=== PATIENT | male | born 1950 | race Caucasian/White ===

== ENCOUNTER 2019-07-02 20:32 | Inpatient (IN) | payer MEDICARE, OTHER ==
--- NOTE | 2019-07-02 21:33 | PDOC ---
Attending Attestation - Resident Resident Name: Michael Mireles - ED Attending Attestation I have performed the following: I have examined & evaluated the patient, The case was reviewed & discussed with the resident, I agree w/resident's findings & plan, Exceptions are as noted - HPI HPI: 07/03/19 06:19 See resident HPI - Physicial Exam PE: 07/03/19 06:19 Agree with documented exam - Medical Decision Making 07/02/19 21:32 Patient had episode of eugenio syncope with prodrome and fall from standing f/u labs, imaging, ekg dispo per clinical course admit for syncope evaluation
--- NOTE | 2019-07-02 21:54 | PDOC ---
History of Present Illness - General Chief Complaint: Injury Stated Complaint: SLIP AND FALL Time Seen by Provider: 07/02/19 20:55 - History of Present Illness Initial Comments: 07/02/19 21:50 69 yo M PMH HTN, HLD, NIDDM, asthma, glaucoma, open heart surgery 8 years ago, presenting with syncope. States that around 1830 today, he was walking in his kitchen when he felt lightheaded, felt like his vision grew dark, and woke up on the floor. Unsure how long he was down, but thinks several minutes. States that this is identical to previous symptoms 8 years ago when he had 7 episodes like this, culminating in open heart surgery. Had been symptom free since surgery. Heel Caser is Dr. Teresa at [facility]. Currently complains only of 8/10 parietal headache. Denies ever having CP, SOB, abd pain, fevers/chills, constipation/diarrhea. Past History - Past Medical History Allergies/Adverse Reactions: Allergies Allergy/AdvReac Type Severity Reaction Status Date / Time No Known Allergies Allergy Verified 07/02/19 20:57 Home Medications: Ambulatory Orders Amlodipine Besylate [Norvasc -] 5 mg PO DAILY 03/12/12 Aspirin [ASA -] 81 mg PO DAILY 07/03/19 Atorvastatin Ca [Lipitor] 40 mg PO DAILY 07/03/19 Ergocalciferol (Vitamin D2) [Vitamin D2] 50,000 unit PO WEEKLY 07/03/19 Latanoprost 0.005% Eye Drops [Xalatan 0.005% Eye Drops -] 1 drop OU DAILY Lisinopril 20 mg PO DAILY 07/03/19 Tolterodine Tartrate [Tolterodine Tartrate ER] 4 mg PO DAILY 07/03/19 Diabetes: Yes HTN: Yes - Psycho Social/Smoking Cessation Hx Smoking Status: Yes Smoking History: Unknown if ever smoked Have you smoked in the past 12 months: No Number of Cigarettes Smoked Daily: 0 Information on smoking cessation initiated: No Hx Alcohol Use: No Drug/Substance Use Hx: No Substance Use Type: None Hx Substance Use Treatment: No Review of Systems - Review of Systems Comments:: 07/02/19 21:55 GENERAL/CONSTITUTIONAL: No fever or chills. No weakness. HEAD, EYES, EARS, NOSE AND THROAT: No change in vision. No ear pain or discharge. No sore throat. CARDIOVASCULAR: No chest pain or shortness of breath. RESPIRATORY: No cough, wheezing, or hemoptysis. GASTROINTESTINAL: No nausea, vomiting, diarrhea or constipation. GENITOURINARY: No dysuria, frequency, or change in urination. MUSCULOSKELETAL: No joint or muscle swelling or pain. No neck or back pain. SKIN: No rash NEUROLOGIC: No headache, vertigo, loss of consciousness, or change in strength/ sensation. ENDOCRINE: No increased thirst. No abnormal weight change. HEMATOLOGIC/LYMPHATIC: No anemia, easy bleeding, or history of blood clots. ALLERGIC/IMMUNOLOGIC: No hives or skin allergy *Physical Exam - Vital Signs Last Vital Signs Temp Pulse Resp BP Pulse Ox 98.3 F 56 L 18 105/51 L 95 07/02/19 21:05 07/02/19 21:05 07/02/19 21:05 07/02/19 21:05 07/02/19 21:05 - Physical Exam 07/02/19 21:57 Gen: well-developed, well-nourished, NAD Neuro: AAOX4, CN II-XII intact, FTN intact, EOMI, PERRLA, 5/5 strength, SILT HEENT: atraumatic, normocephalic, dry mucous membranes Neck: trachea midline, supple CV: regular rate, regular rhythm, no murmurs, rubs, or gallops Pulm: CTA b/l, no wheezing Abd: soft, non-distended, non-tender MSK: full ROM, intact pulses Extr: no edema, no deformities Skin: warm, dry ED Treatment Course - LABORATORY CBC & Chemistry Diagram: 07/03/19 05:22 07/04/19 06:25 - RADIOLOGY Radiology Studies Ordered: Category Date Time Status HEAD CT WITHOUT CONTRAST [CT] Stat CT Scan 07/02/19 21:33 Taken CXRPORT [CHEST X-RAY PORTABLE*] [RAD] Stat Radiology 07/02/19 21:34 Ordered Medical Decision Making - Medical Decision Making 07/02/19 21:58 Concern for dysrhythmia vs ACS vs brain bleed. - head CT - EKG, CXR - CBC, CMP, trop - UA/UC - admit 07/02/19 23:06 CXR with no acute pathology. CT head: In comparison to a 2012 CT exam, interval development of a chronic left temporal/occipital cortical infarct is noted. Chronic left parietal and right temporoparietal cortical infarcts are seen which were acute at the time of the previous exam. 07/02/19 23:35 EKG normal sinus at 54 bpm. Will admit for syncope with collapse to tele. Discharge - Discharge Information Problems reviewed: Yes Clinical Impression/Diagnosis: Syncope Condition: Stable Disposition: HOME - Follow up/Referral - Patient Discharge Instructions - Post Discharge Activity
[2019-07-02 22:42] LABS: BASO % 0.3 % (0-2.0); EOS % 3.4 % (0-4.5); HEMATOCRIT 40.3 % (35.4-49); HEMOGLOBIN 13.2 GM/dL (11.7-16.9); LYMPH % 35.6 % (8-40); MCH 28.7 pg (25.7-33.7); MCHC 32.7 g/dl (32.0-35.9); MEAN PLT VOLUME 8.3 fl (7.5-11.1); MONO % 5.5 % (3.8-10.2); NEUT % 55.2 % (42.8-82.8); PLATELET COUNT 221 K/MM3 (134-434); RBC 4.58 M/mm3 (4.00-5.60); RDW 15.9 % (11.9-15.9); WHITE BLOOD COUNT 6.5 K/mm3 (4.0-10.0)
[2019-07-02 23:19] LABS: ALBUMIN 3.8 g/dl (3.4-5.0); BILIRUBIN,TOTAL 0.5 mg/dL (0.2-1); BLOOD UREA NITROGEN 13.7 mg/dL (7-18); CALCIUM 9.5 mg/dL (8.5-10.1); CREATININE 1.2 mg/dL (0.55-1.3); POTASSIUM 4.2 mmol/L (3.5-5.1); TOT PROT 7.4 g/dl (6.4-8.2)
--- NOTE | 2019-07-03 00:26 | PN ---
Teaching Attending Note Name of Resident: Mari Rice ATTENDING PHYSICIAN STATEMENT I saw and evaluated the patient. I reviewed the resident's note and discussed the case with the resident. I agree with the resident's findings and plan as documented. SUBJECTIVE: Patient is a 69 year old man with a PMH of HTN, HLD, NIDDM, Asthma, glaucoma and Open heart surgery 8 years ago presenting with syncope. States that around 1830 today, he was walking in his kitchen when he felt lightheaded, felt like his vision grew dark, and woke up on the floor. Unsure how long he was down, but thinks several minutes. States that this is identical to previous symptoms 8 years ago when he had 7 episodes like this, culminating in open heart surgery. Had been symptom free since surgery. Blast Setter is Dr. Teresa at [facility]. Currently complains only of 8/10 parietal headache. Denies ever having chest pain, SOB, abdominal pain, nausea, vomiting, fevers, chills, dysuria, frequency, constipation or diarrhea. No recent travel or sick contacts. Denies alcohol, tobacco or illicit drug use. OBJECTIVE: Alert and not orthostatic Vital Signs Period Temp Pulse Resp BP Sys/Munoz Pulse Ox Last 24 Hr 98.3 F 56 18 105/51 95-98 HEENT: No Jaundice, eye redness or discharge, PERRLA, EOMI. Normocephalic, atraumatic. External ears are normal and hearing is grossly intact. No nasal discharge. Neck: Supple, nontender. No palpable adenopathy or thyromegaly. No JVD Chest: Good effort. Clear to auscultation and percussion. Heart: Regular. No S3, rub or murmur Abdomen: Not distended, soft, nontender and no HSM. No rebound or guarding. Normal bowel sounds. Ext: Peripheral pulses intact. No leg edema. Skin: Warm and dry. No petechiae, rash or ecchymosis. Neuro: Alert. Oriented x3. CN 2-12 grossly intact. Sensation grossly intact in all four extremities and DTR are symmetric. Psych: Appropriate mood and affect. Good insight. Home Medications Medication Instructions Recorded Amlodipine Besylate [Norvasc] 5 mg PO DAILY 03/12/12 Chlorthalidone 25 mg PO DAILY 03/12/12 Ibuprofen [Motrin] 600 mg PO TID PRN 03/12/12 Oxycodone HCl/Acetaminophen 1 - 2 tab PO Q6H PRN 03/12/12 [Percocet 5-325 mg Tablet] Abnormal Lab Results 07/02/19 07/03/19 22:35 02:06 Anion Gap 5 L Ur Specific Ramona 1.007 L Ur Leukocyte Esterase 1+ H ASSESSMENT AND PLAN: 1. Syncope - Etiology unclear. Head CT shows interval development of a chronic left temporal/occipital cortical infarct is noted. Also chronic left parietal and right temporoparietal cortical infarcts are seen. CXR shows elevated left hemidiaphragm but no acute abnormality on CXR. EKG shows sinus bradycardia with no significant ST-T changes and initial troponin is negative. Urine toxicology pending. Monitor on telemetry, do neurochecks, carotid doppler, ECHO, brain MRI , implement fall/seizure precautions, get EEG and consult Neurology and cardiology. Will continue comprehensive care for all of patients comorbid conditions. 2. DM For now, we will hold the home diabetes drugs and implement sliding scale insulin regimen. Provide comprehensive diabetes care with patient teaching and counseling about the importance of adherence to prescribed diabetes regimen, euglycemia, eye care and foot care. 3. Hypertension - Restart suitable outpatient antihypertensive drugs when clinically appropriate. Revise regimen to ensure [id number] excellent BP control and certified drug counselor patient on the injurious effects of uncontrolled hypertension. Nonpharmacologic measures to control hypertension like weight loss , salt restriction and exercise discussed. Importance of adherence to treatment regimen and attainment of normotension emphasized. 4. DVT prophylaxis - Lovenox 40 mg SQ q 24 hours. 5. Advance directives - Full code
--- NOTE | 2019-07-03 00:58 | PDOC ---
*Physical Exam - Vital Signs Last Vital Signs Temp Pulse Resp BP Pulse Ox 98.3 F 56 L 18 105/51 L 98 07/02/19 21:05 07/02/19 21:05 07/02/19 21:05 07/02/19 21:05 07/02/19 22:59 ED Treatment Course - LABORATORY CBC & Chemistry Diagram: 07/02/19 22:35 07/02/19 22:35 Medical Decision Making - Medical Decision Making 07/03/19 00:58 Case d/w Dr Rice, accepted to tele obs. Discharge - Discharge Information Problems reviewed: Yes Clinical Impression/Diagnosis: Syncope Condition: Stable - Admission Yes - Follow up/Referral - Patient Discharge Instructions - Post Discharge Activity
[2019-07-03 02:18] LABS: EPI CELLS 0.3 /HPF (0-5/HPF); HYALINE CASTS 0 /lpf (0-8); PH,URINE 7.5 (5.0-8.0); URINE APPEARANCE CLEAR; URINE BACTERIA 0.5 /hpf (NEGATIVE); URINE BILIRUBIN NEGATIVE (NEGATIVE); URINE COLOR YELLOW; URINE GLUCOSE (UA) NEGATIVE (NEGATIVE); URINE KETONE NEGATIVE (NEGATIVE); URINE LEUK ESTERASE 1+ (NEGATIVE); URINE NITRITE NEGATIVE (NEGATIVE); URINE PROTEIN NEGATIVE (NEGATIVE); URINE RBC 0 /hpf (0-4); URINE UROBILINOGEN 0.2 mg/dL (0.2-1.0); URINE WBC 1 /hpf (0-5)
--- NOTE | 2019-07-03 02:19 | HP ---
CHIEF COMPLAINT: Syncope Hat Blocker: Dr. Teresa ([facility]) HISTORY OF PRESENT ILLNESS: Mr. Becerra is a 69 year old male with PMH of stroke, CABG, HTN, HLD, DM2, asthma, glaucoma who presents s/p syncopal episode. Around 6pm last night, pt was walking to kitchen to get water for his cough. He was coughing, felt lightheaded, had tunnel vision and then woke up on the ground. Episode was unwitnessed. He believes he lost consciousness for about 5 minutes and may have hit his head as he awoke with a parietal headache. He denies any chest pain, palpitations, nausea, SOB preceding the event. Denies seizures or urinating himself. After episode he denies any symptoms, confusion, focal neurologic deficits. He had similar episodes 8 years ago and was diagnosed with stroke and underwent CABG. Pt did well up until one year ago he had a syncopal episode that was preceded by chest pain. He was evaluated at [facility] and does not remember what was done. He sees Dr. Teresa (cardio at [facility]) regularly, last visit one month ago and states that he was told "his heart was okay". Pt feels well at this time, only complains of mild headache. He has residual weakness in his R leg from prior stroke. ER course was notable for: (1) EKG: sinus bradycardia (2) Initial trop neg (3) CT head: no evidence of acute pathology. Interval development of chronic L temporal/occipital cortical infarct. 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 Paranasal sinus disease. Recent Travel: denies PAST MEDICAL HISTORY: As per HPI PAST SURGICAL HISTORY: Social History: Smoking: denies Alcohol: denies Drugs: denies Allergies No Known Allergies Allergy (Verified 07/02/19 20:57) HOME MEDICATIONS: Home Medications Medication Instructions Recorded Amlodipine Besylate [Norvasc] 5 mg PO DAILY 03/12/12 Chlorthalidone 25 mg PO DAILY 03/12/12 Ibuprofen [Motrin] 600 mg PO TID PRN 03/12/12 Oxycodone HCl/Acetaminophen 1 - 2 tab PO Q6H PRN 03/12/12 [Percocet 5-325 mg Tablet] REVIEW OF SYSTEMS CONSTITUTIONAL: Absent: fever, chills, diaphoresis, generalized weakness, malaise, loss of appetite, weight change HEENT: Absent: rhinorrhea, nasal congestion, throat pain, throat swelling, difficulty swallowing, mouth swelling, ear pain, eye pain, visual changes CARDIOVASCULAR: syncope, lightheadedness Absent: chest pain, palpitations, irregular heart rate, peripheral edema RESPIRATORY: Absent: cough, shortness of breath, dyspnea with exertion, orthopnea, wheezing, stridor, hemoptysis GASTROINTESTINAL: Absent: abdominal pain, abdominal distension, nausea, vomiting, diarrhea, constipation, melena, hematochezia GENITOURINARY: Absent: dysuria, frequency, urgency, hesitancy, hematuria, flank pain, genital pain MUSCULOSKELETAL: Absent: myalgia, arthralgia, joint swelling, back pain, neck pain SKIN: Absent: rash, itching, pallor HEMATOLOGIC/IMMUNOLOGIC: Absent: easy bleeding, easy bruising, lymphadenopathy, frequent infections ENDOCRINE: Absent: unexplained weight gain, unexplained weight loss, heat intolerance, cold intolerance NEUROLOGIC: headache Absent: focal weakness or paresthesias, dizziness, unsteady gait, seizure, mental status changes, bladder or bowel incontinence PSYCHIATRIC: Absent: anxiety, depression, suicidal or homicidal ideation, hallucinations. PHYSICAL EXAMINATION Vital Signs - 24 hr 07/02/19 07/02/19 21:05 22:59 Temperature 98.3 F Pulse Rate 56 L Respiratory 18 Rate Blood Pressure 105/51 L O2 Sat by Pulse 95 98 Oximetry (%) GENERAL: Awake, alert, and fully oriented, in no acute distress. HEAD: Normal with no signs of trauma. EYES: Pupils equal, round and reactive to light, extraocular movements intact, sclera anicteric, conjunctiva clear. No lid lag. EARS, NOSE, THROAT: Ears normal, nares patent, oropharynx clear without exudates. Moist mucous membranes. NECK: Normal range of motion, supple without lymphadenopathy, JVD, or masses. LUNGS: Breath sounds equal, clear to auscultation bilaterally. No wheezes, and no crackles. No accessory muscle use. HEART: Bradycardic, normal S1 and S2 without murmur, rub or gallop. ABDOMEN: Soft, nontender, not distended, normoactive bowel sounds, no guarding, no rebound, no masses. No hepatomegaly or splenomegaly. MUSCULOSKELETAL: Normal range of motion at all joints. No bony deformities or tenderness. No CVA tenderness. UPPER EXTREMITIES: 2+ pulses, warm, well-perfused. No cyanosis. No clubbing. No peripheral edema. LOWER EXTREMITIES: 2+ pulses, warm, well-perfused. No calf tenderness. No peripheral edema. NEUROLOGICAL: Cranial nerves II-XII intact. Normal speech. Gait not observed. Residual RLE weakness. PSYCHIATRIC: Cooperative. Good eye contact. Appropriate mood and affect. SKIN: Warm, dry, normal turgor, no rashes or lesions noted, normal capillary refill. Laboratory Results - last 24 hr 07/02/19 07/02/19 07/02/19 22:35 22:35 22:35 WBC 6.5 RBC 4.58 Hgb 13.2 Hct 40.3 D MCV 88.0 MCH 28.7 D MCHC 32.7 RDW 15.9 Plt Count 221 MPV 8.3 D Absolute Neuts (auto) 3.6 Neutrophils % 55.2 D Lymphocytes % 35.6 D Monocytes % 5.5 D Eosinophils % 3.4 Basophils % 0.3 Nucleated RBC % 0 Sodium 140 Potassium 4.2 Chloride 107 Carbon Dioxide 28 Anion Gap 5 L BUN 13.7 Creatinine 1.2 Est GFR (CKD-EPI)AfAm 71.58 Est GFR (CKD-EPI)NonAf 61.76 Random Glucose 101 Calcium 9.5 Total Bilirubin 0.5 AST 17 ALT 16 Alkaline Phosphatase 92 Creatine Kinase 181 Creatine Kinase Index 0.8 CK-MB (CK-2) 1.5 Troponin I 0.02 Total Protein 7.4 Albumin 3.8 ASSESSMENT/PLAN: Mr. Becerra is a 69 year old male with PMH of stroke, CABG, HTN, HLD, DM2, asthma, glaucoma who presents s/p syncopal episode. #Syncope likely 2/2 cardiac vs vasovagal vs orthostatic vs seizure EKG: Sinus bradycardia, no st elevations Orthostatics negative Echo, carotid doppler, tele monitoring. Consider stress test EEG and frequent neuro checks to r/o seizure F/u Utox Fall and seizure precautions Cardiology consulted (Dr. Pederson) #DM2 Home meds unknown ISS TIDAC and FSG monitoring during admission #HTN Home meds unknown. Med rec and continue in am #HLD Home meds unknown. Med rec and continue in am #FEN No standing fluids NPO pending possible stress test #DVT ppx Heparin sq #Dispo Monitor on tele Pt needs to be med-rec'ed ATTENDING PHYSICIAN STATEMENT I saw and evaluated the patient. I reviewed the resident's note and discussed the case with the resident. I agree with the resident's findings and plan as documented. SUBJECTIVE: OBJECTIVE: ASSESSMENT AND PLAN:
[2019-07-03 05:39] LABS: BASO % 0.9 % (0-2.0); EOS % 6.2 % (0-4.5); HEMATOCRIT 38.3 % (35.4-49); HEMOGLOBIN 12.6 GM/dL (11.7-16.9); LYMPH % 40.9 % (8-40); MCH 28.7 pg (25.7-33.7); MCHC 32.9 g/dl (32.0-35.9); MEAN CELL VOLUME 87.2 fl (80-96); MEAN PLT VOLUME 8.1 fl (7.5-11.1); MONO % 6.9 % (3.8-10.2); NEUT % 45.1 % (42.8-82.8); PLATELET COUNT 211 K/MM3 (134-434); RBC 4.39 M/mm3 (4.00-5.60); RDW 15.8 % (11.9-15.9); WHITE BLOOD COUNT 5.1 K/mm3 (4.0-10.0)
[2019-07-03 06:26] LABS: ALBUMIN 3.5 g/dl (3.4-5.0); BILIRUBIN,TOTAL 0.6 mg/dL (0.2-1); BLOOD UREA NITROGEN 12.4 mg/dL (7-18); CALCIUM 9.1 mg/dL (8.5-10.1); TOT PROT 6.9 g/dl (6.4-8.2)
[2019-07-03] MEDS ORDERED: INSULIN (NOVOLOG) ASPART 100 UNITS/ML 10ML VIAL ONE (06:32)
[2019-07-03] MEDS ORDERED: HEPARIN NA (PORCINE) 5,000 UNITS/ML 1ML VIAL ONE (06:32)
[2019-07-03] MEDS: INSULIN SLIDING SCALE (NOVOLOG) 1 VIAL SQ SCH ×3 (06:37→17:27)
[2019-07-03] MEDS: HEPARIN NA (PORCINE) 5,000 UNITS/ML 1ML VIAL SQ SCH ×3 (06:37→21:16)
--- NOTE | 2019-07-03 11:06 | CON.CARD ---
Consult Consult Specialty:: cardology Reason for Consultation:: syncope - History of Present Illness Chief Complaint: Pt A&Ox3; no chest pain or dyspnea; headache is now mild. History of Present Illness: 69 yo M PMH HTN, HLD, NIDDM, asthma, glaucoma, CABG 8 years ago, diastolic CHF, s/p bioprosthetic mitral valve, presenting with syncope. States that around 1830 today, he was walking in his kitchen when he felt lightheaded, felt like his vision grew dark, and woke up on the floor. Unsure how long he was down, but thinks several minutes. States that this is identical to previous symptoms 8 years ago when he had 7 episodes like this, culminating in open heart surgery. Had been symptom free since surgery. Legal Instructor is Dr. Gonzalez at [facility]. Currently complains only of 8/10 parietal headache. Denies ever having CP, SOB, abd pain, fevers/chills, constipation/diarrhea. - History Source History Provided By: Patient, Medical Record Limitations to Obtaining History: No Limitations - Past Medical History Cardio/Vascular: Yes: CAD, CHF (diastolic), HTN, Hyperlipdemia Pulmonary: Yes: Asthma Renal/: No: Renal Inusuff Heme/Onc: No: Anemia - Alcohol/Substance Use Hx Alcohol Use: No - Smoking History Have you smoked in the past 12 months: No Aproximately how many cigarettes per day: 0 Home Medications - Allergies Allergies/Adverse Reactions: Allergies Allergy/AdvReac Type Severity Reaction Status Date / Time No Known Allergies Allergy Verified 07/02/19 20:57 - Home Medications Home Medications: Ambulatory Orders Amlodipine Besylate [Norvasc] 5 mg PO DAILY 03/12/12 Aspirin [ASA -] 81 mg PO DAILY 07/03/19 Atorvastatin Ca [Lipitor] 40 mg PO DAILY 07/03/19 Ergocalciferol (Vitamin D2) [Vitamin D2] 50,000 unit PO WEEKLY 07/03/19 Latanoprost 0.005% Eye Drops [Xalatan 0.005% Eye Drops -] 1 drop OU DAILY Lisinopril 20 mg PO DAILY 07/03/19 Tolterodine Tartrate [Tolterodine Tartrate ER] 4 mg PO DAILY 07/03/19 Family Medical History Family History: Denies Review of Systems - Review of Systems Constitutional: reports: No Symptoms Eyes: reports: No Symptoms HENT: reports: No Symptoms Neck: reports: No Symptoms Cardiovascular: reports: No Symptoms Respiratory: reports: No Symptoms Gastrointestinal: reports: No Symptoms Genitourinary: reports: No Symptoms Breasts: reports: No Symptoms Reported Musculoskeletal: reports: No Symptoms Integumentary: reports: No Symptoms Neurological: reports: Syncope Endocrine: reports: No Symptoms Hematology/Lymphatic: reports: No Symptoms Psychiatric: reports: No Symptoms - Risk Factors Known Risk Factors: Yes: Age, Diabetes Mellitus, Gender, Hypercholesterolemia, Hypertension, Other (CABG) Vital Signs: Vital Signs Temperature 97.3 F L 07/03/19 10:26 Pulse Rate 62 07/03/19 10:26 Respiratory Rate 20 07/03/19 10:26 Blood Pressure 116/60 07/03/19 10:26 O2 Sat by Pulse Oximetry (%) 96 07/03/19 10:26 Constitutional: Yes: Well Nourished Eyes: Yes: WNL HENT: Yes: WNL Neck: Yes: WNL Respiratory: Yes: WNL Gastrointestinal: Yes: WNL Renal/: Yes: WNL Cardiovascular: Yes: WNL JVD: No Carotid Bruit: No PMI: Non-Displaced Heart Sounds: Yes: S1, S2 Musculoskeletal: Yes: WNL Extremities: Yes: WNL Edema: No Peripheral Pulses WNL: Yes Integumentary: Yes: WNL Neurological: Yes: Alert, Oriented Psychiatric: Yes: Alert, Oriented - Other Data Labs, Other Data: CBC, BMP 07/03/19 05:22 07/03/19 05:22 Troponin, BNP 07/02/19 22:35 Troponin I 0.02 Troponin, BNP 07/02/19 22:35 Troponin I 0.02 Laboratory Results - last 24 hr 07/03/19 07/03/19 07/03/19 05:22 05:22 06:33 WBC 5.1 RBC 4.39 Hgb 12.6 Hct 38.3 MCV 87.2 MCH 28.7 MCHC 32.9 RDW 15.8 Plt Count 211 MPV 8.1 Absolute Neuts (auto) 2.3 Neutrophils % 45.1 Lymphocytes % 40.9 H Monocytes % 6.9 Eosinophils % 6.2 H D Basophils % 0.9 Nucleated RBC % 0 Sodium 141 Potassium 4.0 Chloride 109 H Carbon Dioxide 27 Anion Gap 5 L BUN 12.4 Creatinine 1.0 Est GFR (CKD-EPI)AfAm 89.23 Est GFR (CKD-EPI)NonAf 76.99 POC Glucometer 95 Random Glucose 92 Calcium 9.1 Total Bilirubin 0.6 AST 13 L ALT 16 Alkaline Phosphatase 84 Total Protein 6.9 Albumin 3.5 Triglycerides Cholesterol Total LDL Cholesterol HDL Cholesterol TSH Opiates Screen Methadone Screen Barbiturate Screen Phencyclidine Screen Ur Amphetamines Screen MDMA (Ecstasy) Screen Benzodiazepines Screen Cocaine Screen U Marijuana (THC) Screen 07/03/19 07/03/19 07/03/19 10:41 17:25 21:45 WBC RBC Hgb Hct MCV MCH MCHC RDW Plt Count MPV Absolute Neuts (auto) Neutrophils % Lymphocytes % Monocytes % Eosinophils % Basophils % Nucleated RBC % Sodium Potassium Chloride Carbon Dioxide Anion Gap BUN Creatinine Est GFR (CKD-EPI)AfAm Est GFR (CKD-EPI)NonAf POC Glucometer 122 Random Glucose Calcium Total Bilirubin AST ALT Alkaline Phosphatase Total Protein Albumin Triglycerides Cholesterol Total LDL Cholesterol HDL Cholesterol TSH 2.35 Opiates Screen Negative Methadone Screen Negative Barbiturate Screen Negative Phencyclidine Screen Negative Ur Amphetamines Screen Negative MDMA (Ecstasy) Screen Negative Benzodiazepines Screen Negative Cocaine Screen Negative U Marijuana (THC) Screen Negative 07/03/19 21:45 WBC RBC Hgb Hct MCV MCH MCHC RDW Plt Count MPV Absolute Neuts (auto) Neutrophils % Lymphocytes % Monocytes % Eosinophils % Basophils % Nucleated RBC % Sodium Potassium Chloride Carbon Dioxide Anion Gap BUN Creatinine Est GFR (CKD-EPI)AfAm Est GFR (CKD-EPI)NonAf POC Glucometer Random Glucose Calcium Total Bilirubin AST ALT Alkaline Phosphatase Total Protein Albumin Triglycerides 70 Cholesterol 119 Total LDL Cholesterol 49 HDL Cholesterol 61 H TSH Opiates Screen Methadone Screen Barbiturate Screen Phencyclidine Screen Ur Amphetamines Screen MDMA (Ecstasy) Screen Benzodiazepines Screen Cocaine Screen U Marijuana (THC) Screen Abnormal Lab Results 07/03/19 07/03/19 07/03/19 05:22 05:22 21:45 Lymphocytes % 40.9 H Eosinophils % 6.2 H D Chloride 109 H Anion Gap 5 L AST 13 L HDL Cholesterol 61 H Echo: Report Reviewed Ejection Fraction %: LVEF > or = 40 % Imaging - Results Chest X-ray: Image Reviewed EKG: Image Reviewed Problem List - Problems (1) Diabetes Code(s): E11.9 - TYPE 2 DIABETES MELLITUS WITHOUT COMPLICATIONS (2) HTN (hypertension) Code(s): I10 - ESSENTIAL (PRIMARY) HYPERTENSION (3) Hyperlipidemia Assessment/Plan: f/u lipid profile. On statin. Code(s): E78.5 - HYPERLIPIDEMIA, UNSPECIFIED (4) Syncope Assessment/Plan: orthostatic vital signs. Avoid dehydration. ECHO: normal LVEF. EKG: mildly sinus bradycardia; otherwise normal. Carotid artery US: mild plaque; no stenosis. CT head: chronic cerebral infarcts; f/u etiology. on telemetry. F/u prior cardiac workup (Dr. Gonzalez, [facility]); for stress test if not done recently (may be done as outpatient). Code(s): R55 - SYNCOPE AND COLLAPSE (5) CAD (coronary artery disease) Assessment/Plan: s/p CABG 2011 normal LVEF F/u lipids (on atorvastatin) On lisinopril and amlodipine. Code(s): I25.10 - ATHSCL HEART DISEASE OF [place] CORONARY ARTERY W/O ANG PCTRS (6) CVA (cerebral vascular accident) Assessment/Plan: chronic infarcts noted on head CT. F/u prior neurology workup. Aggresive control of lipids. Code(s): I63.9 - CEREBRAL INFARCTION, UNSPECIFIED
[2019-07-03 11:39] LABS: COCAINE, UR NEGATIVE ng/ml (CUTOFF=300); METHADONE, UR NEGATIVE ng/ml (CUTOFF=300); OPIATES, URI NEGATIVE ng/ml (CUTOFF=300); PHENCYCLIDINE,URINE NEGATIVE ng/ml (CUTOFF=25); URINE AMPHETAMINES NEGATIVE ng/ml (CUTOFF=500); URINE BARBITURATES NEGATIVE ng/ml (CUTOFF=200); URINE BENZODIAZEPINES NEGATIVE ng/ml (CUTOFF=200)
[2019-07-03 11:43] VITALS: BMI 27.8
--- NOTE | 2019-07-03 11:55 | ECHO ---
Name: JULIUS ML Exam:Adult Echocardiogram Study Date: 07/03/2019 08:36 AM Age: 69 yrs Height: 64 in Weight: 160 lb BSA: 1.8 m2 MMode/2D Measurements & Calculations IVSd: 1.0 cm Ao root diam: 2.3 cm LVIDd: 4.4 cm LA dimension: 4.1 cm LVIDs: 3.4 cm LVPWd: 1.3 cm LVPWs: 1.4 cm EDV(Teich): 87.3 ml ESV(Teich): 46.8 ml LVOT diam: 2.0 cm LAV (MOD-bp): 65.8 ml TAPSE: 1.7 cm Doppler Measurements & Calculations MV E max boom: 212.0 cm/sec Ao V2 max: 178.6 cm/sec MV A max boom: 170.4 cm/sec Ao max P.8 mmHg MV E/A: 1.2 CLIFTON(V,D): 2.2 cm2 MV dec time: 0.43 sec LV V1 max P.8 mmHg MR max boom: 545.5 cm/sec LV V1 max: 120.4 cm/sec MR max P.6 mmHg PA V2 max: 102.5 cm/sec PA max P.2 mmHg Procedure A complete two-dimensional transthoracic echocardiogram was performed (2D, M-mode, Doppler and color flow Doppler). Left Ventricle The left ventricular size, thickness and function are normal. The left ventricular ejection fraction is normal. Ejection Fraction = 55-60%. The left ventricular wall motion is normal. Right Ventricle The right ventricle is normal in size and function. Atria The left atrium is mildly dilated. Right atrial size is normal. Mitral Valve There is a bioprosthetic mitral valve. The prosthetic mitral valve is well-seated. Prosthetic mitral valve peak and/or mean gradients are normal. There is trace mitral regurgitation. Tricuspid Valve No tricuspid regurgitation. There was insufficient TR detected to calculate RV systolic pressure. Aortic Valve No hemodynamically significant valvular aortic stenosis. No aortic regurgitation is present. Pulmonic Valve There is no pulmonic valvular regurgitation. Great Vessels The aortic root is normal size. Pericardium/Pleura There is no pericardial effusion. Interpretation Summary The left ventricular size, thickness and function are normal The right ventricle is normal in size and function. The left atrium is mildly dilated. There is a bioprosthetic mitral valve. MD Babatunde Myers 07/03/2019 11:55 AM
--- NOTE | 2019-07-03 13:21 | EKG ---
Test Reason : Blood Pressure : / mmHG Vent. Rate : 054 BPM Atrial Rate : 054 BPM P-R Int : 144 ms QRS Dur : 088 ms QT Int : 460 ms P-R-T Axes : 000 -17 000 degrees QTc Int : 436 ms SINUS BRADYCARDIA OTHERWISE NORMAL ECG WHEN COMPARED WITH ECG OF 20-MAR-2012 11:08, QT HAS SHORTENED Confirmed by JOYCE JIMENEZ MD ([id number]) on 07/03/2019 1:21:20 PM Referred By: Confirmed By:JOYCE JIMENEZ MD
--- NOTE | 2019-07-03 13:52 | PN ---
Teaching Attending Note Name of Resident: Eder Campa ATTENDING PHYSICIAN STATEMENT I saw and evaluated the patient. I reviewed the resident's note and discussed the case with the resident. I agree with the resident's findings and plan as documented. SUBJECTIVE: Feeling some residual lightheadedness/dizziness, worse on standing/ walking. OBJECTIVE: Afebrile, Hemodynamically Stable. Last Vital Signs Temp Pulse Resp BP Pulse Ox 98.2 F 73 18 128/73 96 07/03/19 13:37 07/03/19 13:37 07/03/19 13:37 07/03/19 13:37 07/03/19 10:26 HEENT - Atraumatic, Normocephalic. LOLA. Heart - S1, S2, RRR Lungs - clear to auscultation Abdomen - Soft, non-tender. Bowel Sounds normal. Extremities - no edema, no calf tenderness. Neuro -AAO x 3. Tone/Power normal all extremities. Laboratory Results - last 24 hr 07/02/19 07/02/19 07/02/19 22:35 22:35 22:35 WBC 6.5 RBC 4.58 Hgb 13.2 Hct 40.3 D MCV 88.0 MCH 28.7 D MCHC 32.7 RDW 15.9 Plt Count 221 MPV 8.3 D Absolute Neuts (auto) 3.6 Neutrophils % 55.2 D Lymphocytes % 35.6 D Monocytes % 5.5 D Eosinophils % 3.4 Basophils % 0.3 Nucleated RBC % 0 Sodium 140 Potassium 4.2 Chloride 107 Carbon Dioxide 28 Anion Gap 5 L BUN 13.7 Creatinine 1.2 Est GFR (CKD-EPI)AfAm 71.58 Est GFR (CKD-EPI)NonAf 61.76 POC Glucometer Random Glucose 101 Calcium 9.5 Total Bilirubin 0.5 AST 17 ALT 16 Alkaline Phosphatase 92 Creatine Kinase 181 Creatine Kinase Index 0.8 CK-MB (CK-2) 1.5 Troponin I 0.02 Total Protein 7.4 Albumin 3.8 Urine Color Urine Appearance Urine pH Ur Specific [place] Urine Protein Urine Glucose (UA) Urine Ketones Urine Blood Urine Nitrite Urine Bilirubin Urine Urobilinogen Ur Leukocyte Esterase Urine WBC (Auto) Urine RBC (Auto) Urine Casts (Auto) U Epithel Cells (Auto) Urine Bacteria (Auto) Opiates Screen Methadone Screen Barbiturate Screen Phencyclidine Screen Ur Amphetamines Screen MDMA (Ecstasy) Screen Benzodiazepines Screen Cocaine Screen U Marijuana (THC) Screen 07/03/19 07/03/19 07/03/19 02:06 05:22 05:22 WBC 5.1 RBC 4.39 Hgb 12.6 Hct 38.3 MCV 87.2 MCH 28.7 MCHC 32.9 RDW 15.8 Plt Count 211 MPV 8.1 Absolute Neuts (auto) 2.3 Neutrophils % 45.1 Lymphocytes % 40.9 H Monocytes % 6.9 Eosinophils % 6.2 H D Basophils % 0.9 Nucleated RBC % 0 Sodium 141 Potassium 4.0 Chloride 109 H Carbon Dioxide 27 Anion Gap 5 L BUN 12.4 Creatinine 1.0 Est GFR (CKD-EPI)AfAm 89.23 Est GFR (CKD-EPI)NonAf 76.99 POC Glucometer Random Glucose 92 Calcium 9.1 Total Bilirubin 0.6 AST 13 L ALT 16 Alkaline Phosphatase 84 Creatine Kinase Creatine Kinase Index CK-MB (CK-2) Troponin I Total Protein 6.9 Albumin 3.5 Urine Color Yellow Urine Appearance Clear Urine pH 7.5 D Ur Specific [place] 1.007 L Urine Protein Negative Urine Glucose (UA) Negative Urine Ketones Negative Urine Blood Negative Urine Nitrite Negative Urine Bilirubin Negative Urine Urobilinogen 0.2 Ur Leukocyte Esterase 1+ H Urine WBC (Auto) 1 Urine RBC (Auto) 0 Urine Casts (Auto) 0 U Epithel Cells (Auto) 0.3 Urine Bacteria (Auto) 0.5 Opiates Screen Methadone Screen Barbiturate Screen Phencyclidine Screen Ur Amphetamines Screen MDMA (Ecstasy) Screen Benzodiazepines Screen Cocaine Screen U Marijuana (THC) Screen 07/03/19 07/03/19 06:33 10:41 WBC RBC Hgb Hct MCV MCH MCHC RDW Plt Count MPV Absolute Neuts (auto) Neutrophils % Lymphocytes % Monocytes % Eosinophils % Basophils % Nucleated RBC % Sodium Potassium Chloride Carbon Dioxide Anion Gap BUN Creatinine Est GFR (CKD-EPI)AfAm Est GFR (CKD-EPI)NonAf POC Glucometer 95 Random Glucose Calcium Total Bilirubin AST ALT Alkaline Phosphatase Creatine Kinase Creatine Kinase Index CK-MB (CK-2) Troponin I Total Protein Albumin Urine Color Urine Appearance Urine pH Ur Specific [place] Urine Protein Urine Glucose (UA) Urine Ketones Urine Blood Urine Nitrite Urine Bilirubin Urine Urobilinogen Ur Leukocyte Esterase Urine WBC (Auto) Urine RBC (Auto) Urine Casts (Auto) U Epithel Cells (Auto) Urine Bacteria (Auto) Opiates Screen Negative Methadone Screen Negative Barbiturate Screen Negative Phencyclidine Screen Negative Ur Amphetamines Screen Negative MDMA (Ecstasy) Screen Negative Benzodiazepines Screen Negative Cocaine Screen Negative U Marijuana (THC) Screen Negative Current Medications Generic Name Dose Route Start Last Admin Trade Name Mino PRN Reason Stop Dose Admin Heparin Sodium (Porcine) 5,000 unit 07/03/19 06:00 07/03/19 06:37 Heparin - SQ 5,000 unit TID [facility] Administration Insulin Aspart 1 vial 07/03/19 07:00 07/03/19 11:30 Novolog Vial Sliding Scale - SQ Not Given TIDAC [facility] Protocol ASSESSMENT AND PLAN: 69 year old male with PMH of CVA, CAD s/p CABG, HTN, HLD, DM 2, Asthma, Glaucoma , presents s/p syncopal episode. Reports preceeding lightheadedness. No CP/ palpitations. Reports LOC for several minutes. HI uncertain. CT Head: no evidence of acute pathology. Interval development of chronic L temporal/occipital cortical infarct. 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 Paranasal sinus disease. 1. Syncope, etiology unclear - vasovagal versus orthostasis versus symptomatic Bradycardia. Echo - normal LV function, bioprosthetic MV. Carotid Duplex - no hemodynamically significant stenosis. Orthostatic Vitals. Telemonitoring. Cardiology consulted. EEG and Neuro eval as out-patient. 2. Hx of CVA, multiple chronic infarcts on CT Head. Will review home meds ?Aspirin, Statin. Lipid profile requested. 3. DM 2 - Novolog sliding scale. 4. HTN - Continue home meds once med rec complete. Will avoid diuretics pending Orthostatic vitals. 5. HLD - home meds unclear, will resume once clarified. 6. CAD s/p CABG - no evidence of cardiac etiology. ECG - no acute changes, TropI neg. Telemonitoring and Cardiology eval. DVT Px - Heparin SQ.
[2019-07-03] MEDS: amLODIPine BESYLATE 5 MG TABLET (FP) PO SCH (17:27)
[2019-07-03] MEDS: LISINOPRIL 20 MG TABLET (FP) PO SCH (17:27)
--- NOTE | 2019-07-03 17:49 | PN ---
Physical Exam: SUBJECTIVE: Patient seen and examined. No acute events overnight. Complains of mild headache but denies chest pain, abd pain, SOB, or other concerns. OBJECTIVE: Vital Signs Period Temp Pulse Resp BP Sys/Munoz Pulse Ox Last 24 Hr 97.3 F-98.3 F 54-73 13-20 105-145/51-73 95-98 GENERAL: The patient is awake, alert, and fully oriented, in no acute distress. HEAD: Normal with no signs of trauma. EYES: EOMI, no ptosis, no scleral icterus ENT: oropharynx clear without exudates, moist mucous membranes NECK: Trachea midline, supple. LUNGS: Breath sounds equal, clear to auscultation bilaterally, no wheezes, no crackles, no accessory muscle use. HEART: Regular rate and rhythm, S1, S2 without murmur, rub or gallop. ABDOMEN: Soft, nontender, nondistended, normoactive bowel sounds, no guarding, no rebound EXTREMITIES: 2+ pulses, warm, well-perfused, no edema. NEUROLOGICAL: Normal speech, gait not observed. Sensation intact throughout PSYCH: Normal mood, normal affect. SKIN: Warm, dry, normal turgor, no rashes or lesions noted Laboratory Results - last 24 hr 07/02/19 07/02/19 07/02/19 22:35 22:35 22:35 WBC 6.5 RBC 4.58 Hgb 13.2 Hct 40.3 D MCV 88.0 MCH 28.7 D MCHC 32.7 RDW 15.9 Plt Count 221 MPV 8.3 D Absolute Neuts (auto) 3.6 Neutrophils % 55.2 D Lymphocytes % 35.6 D Monocytes % 5.5 D Eosinophils % 3.4 Basophils % 0.3 Nucleated RBC % 0 Sodium 140 Potassium 4.2 Chloride 107 Carbon Dioxide 28 Anion Gap 5 L BUN 13.7 Creatinine 1.2 Est GFR (CKD-EPI)AfAm 71.58 Est GFR (CKD-EPI)NonAf 61.76 POC Glucometer Random Glucose 101 Calcium 9.5 Total Bilirubin 0.5 AST 17 ALT 16 Alkaline Phosphatase 92 Creatine Kinase 181 Creatine Kinase Index 0.8 CK-MB (CK-2) 1.5 Troponin I 0.02 Total Protein 7.4 Albumin 3.8 Urine Color Urine Appearance Urine pH Ur Specific [place] Urine Protein Urine Glucose (UA) Urine Ketones Urine Blood Urine Nitrite Urine Bilirubin Urine Urobilinogen Ur Leukocyte Esterase Urine WBC (Auto) Urine RBC (Auto) Urine Casts (Auto) U Epithel Cells (Auto) Urine Bacteria (Auto) Opiates Screen Methadone Screen Barbiturate Screen Phencyclidine Screen Ur Amphetamines Screen MDMA (Ecstasy) Screen Benzodiazepines Screen Cocaine Screen U Marijuana (THC) Screen 07/03/19 07/03/19 07/03/19 02:06 05:22 05:22 WBC 5.1 RBC 4.39 Hgb 12.6 Hct 38.3 MCV 87.2 MCH 28.7 MCHC 32.9 RDW 15.8 Plt Count 211 MPV 8.1 Absolute Neuts (auto) 2.3 Neutrophils % 45.1 Lymphocytes % 40.9 H Monocytes % 6.9 Eosinophils % 6.2 H D Basophils % 0.9 Nucleated RBC % 0 Sodium 141 Potassium 4.0 Chloride 109 H Carbon Dioxide 27 Anion Gap 5 L BUN 12.4 Creatinine 1.0 Est GFR (CKD-EPI)AfAm 89.23 Est GFR (CKD-EPI)NonAf 76.99 POC Glucometer Random Glucose 92 Calcium 9.1 Total Bilirubin 0.6 AST 13 L ALT 16 Alkaline Phosphatase 84 Creatine Kinase Creatine Kinase Index CK-MB (CK-2) Troponin I Total Protein 6.9 Albumin 3.5 Urine Color Yellow Urine Appearance Clear Urine pH 7.5 D Ur Specific [place] 1.007 L Urine Protein Negative Urine Glucose (UA) Negative Urine Ketones Negative Urine Blood Negative Urine Nitrite Negative Urine Bilirubin Negative Urine Urobilinogen 0.2 Ur Leukocyte Esterase 1+ H Urine WBC (Auto) 1 Urine RBC (Auto) 0 Urine Casts (Auto) 0 U Epithel Cells (Auto) 0.3 Urine Bacteria (Auto) 0.5 Opiates Screen Methadone Screen Barbiturate Screen Phencyclidine Screen Ur Amphetamines Screen MDMA (Ecstasy) Screen Benzodiazepines Screen Cocaine Screen U Marijuana (THC) Screen 07/03/19 07/03/19 07/03/19 06:33 10:41 17:25 WBC RBC Hgb Hct MCV MCH MCHC RDW Plt Count MPV Absolute Neuts (auto) Neutrophils % Lymphocytes % Monocytes % Eosinophils % Basophils % Nucleated RBC % Sodium Potassium Chloride Carbon Dioxide Anion Gap BUN Creatinine Est GFR (CKD-EPI)AfAm Est GFR (CKD-EPI)NonAf POC Glucometer 95 122 Random Glucose Calcium Total Bilirubin AST ALT Alkaline Phosphatase Creatine Kinase Creatine Kinase Index CK-MB (CK-2) Troponin I Total Protein Albumin Urine Color Urine Appearance Urine pH Ur Specific [place] Urine Protein Urine Glucose (UA) Urine Ketones Urine Blood Urine Nitrite Urine Bilirubin Urine Urobilinogen Ur Leukocyte Esterase Urine WBC (Auto) Urine RBC (Auto) Urine Casts (Auto) U Epithel Cells (Auto) Urine Bacteria (Auto) Opiates Screen Negative Methadone Screen Negative Barbiturate Screen Negative Phencyclidine Screen Negative Ur Amphetamines Screen Negative MDMA (Ecstasy) Screen Negative Benzodiazepines Screen Negative Cocaine Screen Negative U Marijuana (THC) Screen Negative Active Medications Generic Name Dose Route Start Last Admin Trade Name Freq PRN Reason Stop Dose Admin Amlodipine Besylate 5 mg 07/03/19 14:30 07/03/19 17:27 Norvasc - PO 5 mg DAILY [facility] Administration Aspirin 81 mg 07/04/19 10:00 Asa - PO DAILY [facility] Atorvastatin Calcium 40 mg 07/03/19 22:00 Lipitor - PO HS [facility] Heparin Sodium (Porcine) 5,000 unit 07/03/19 06:00 07/03/19 14:25 Heparin - SQ 5,000 unit TID [facility] Administration Insulin Aspart 1 vial 07/03/19 07:00 07/03/19 17:27 Novolog Vial Sliding Scale - SQ Not Given TIDAC [facility] Protocol Lisinopril 20 mg 07/03/19 14:45 07/03/19 17:27 Prinivil PO 20 mg DAILY [facility] Administration Tolterodine Tartrate 4 mg 07/04/19 10:00 Detrol La - PO DAILY [facility] ASSESSMENT/PLAN: 69 year old male with PMHx of stroke, CABG, HTN, HLD, DM2, asthma, glaucoma who presented s/p syncopal episode. Admitted for observation/syncope workup. #Syncope likely 2/2 cardiac vs vasovagal vs orthostatic vs seizure - EKG: Sinus bradycardia, no st elevations - Orthostatics positive - Carotid doppler - minimal intimal thickening at the right carotid bifurcation and small plaques at the left common carotid bifurcation/bulb without evidence of hemodynamically significant stenosis bilaterally. - ECHO - bioprosthetic mitral valve, left atrium mildly dilated, otherwise normal study. EF 55-60% - EEG and frequent neuro checks to r/o seizure - Utox negative - Head CT - no acute pathology, evidence of old infarcts - Fall and seizure precautions - Cardiology consulted, appreciate recs (Dr. Rivera) - EEG and neuro eval as outpatient recommended #DM2 - ISS - BGMs - no DM medications as per pharmacy - check A1c in AM #HTN - Continue home Lisinopril and Amlodipine #HLD - Continue home atorvastatin #FEN - Sodium/fat/diabetic diet - monitor and replete lytes as needed #DVT ppx - Heparin sq #Dispo - 24 hour monitoring, likely DC tomorrow if orthostatic vitals negative and cardiology evaluation Visit type - Emergency Visit Emergency Visit: Yes ED Registration Date: 07/02/19 Care time: The patient presented to the Emergency Department on the above date and was hospitalized for further evaluation of their emergent condition. - New Patient This patient is new to me today: Yes Date on this admission: 07/03/19 - Critical Care Critical Care patient: No ATTENDING PHYSICIAN STATEMENT I saw and evaluated the patient. I reviewed the resident's note and discussed the case with the resident. I agree with the resident's findings and plan as documented. SUBJECTIVE: OBJECTIVE: ASSESSMENT AND PLAN:
[2019-07-03] MEDS ORDERED: ATORVASTATIN CA 40 MG TABLET (FP) PO SCH (22:00)
[2019-07-03 22:27] LABS: CHOLESTEROL 119 mg/dL (50-200); HDL CHOLESTEROL 61 mg/dL (40-60); LDL CHOLESTEROL (ONLY SJRH) 49 mg/dL (5-100); TRIGLYCERIDES 70 mg/dL (0-150)
[2019-07-04] MEDS: HEPARIN NA (PORCINE) 5,000 UNITS/ML 1ML VIAL SQ SCH (06:03)
[2019-07-04] MEDS: INSULIN SLIDING SCALE (NOVOLOG) 1 VIAL SQ SCH ×2 (06:03→12:14)
[2019-07-04 07:14] LABS: BLOOD UREA NITROGEN 18.2 mg/dL (7-18); CALCIUM 9.4 mg/dL (8.5-10.1); CREATININE 0.9 mg/dL (0.55-1.3); MAGNESIUM 2.4 mg/dL (1.8-2.4); POTASSIUM 4.1 mmol/L (3.5-5.1)
[2019-07-04] MEDS ORDERED: PT OWN MED DRAWER 7, Y5N ONE (08:37)
[2019-07-04] MEDS: amLODIPine BESYLATE 5 MG TABLET (FP) PO SCH (09:18)
[2019-07-04] MEDS: LISINOPRIL 20 MG TABLET (FP) PO SCH (09:18)
[2019-07-04] MEDS ORDERED: TOLTERODINE TARTRATE LA 4 MG CAP.SR.24H (FP) PO SCH (10:00)
[2019-07-04] MEDS ORDERED: ASPIRIN 81 MG CHEWABLE TABLETS PO SCH (10:00)
[2019-07-04 11:18] VITALS: TEMP 98.2
--- NOTE | 2019-07-04 11:35 | PN ---
Progress Note, Physician Chief Complaint: Events noted Coverage for Dr. Rivera Not in distress History of Present Illness: Patient was seen and examined. Awake and alert. Chart was reviewed Denies chest pain, SOB or palpitations - Current Medication List Current Medications: Active Medications Amlodipine Besylate (Norvasc -) 5 mg PO DAILY [facility] Last Admin: 07/04/19 09:18 Dose: 5 mg Aspirin (Asa -) 81 mg PO DAILY [facility] Last Admin: 07/04/19 09:18 Dose: 81 mg Atorvastatin Calcium (Lipitor -) 40 mg PO HS [facility] Last Admin: 07/03/19 21:16 Dose: 40 mg Heparin Sodium (Porcine) (Heparin -) 5,000 unit SQ TID [facility] Last Admin: 07/04/19 06:03 Dose: 5,000 unit Insulin Aspart (Novolog Vial Sliding Scale -) 1 vial SQ TIDAC [facility]; Protocol Last Admin: 07/04/19 06:03 Dose: Not Given Lisinopril (Prinivil) 20 mg PO DAILY [facility] Last Admin: 07/04/19 09:18 Dose: 20 mg Tolterodine Tartrate (Detrol La -) 4 mg PO DAILY [facility] Last Admin: 07/04/19 09:18 Dose: 4 mg - Objective Vital Signs: Vital Signs Temperature 98.2 F 07/04/19 10:00 Pulse Rate 55 L 07/04/19 10:00 Respiratory Rate 18 07/04/19 10:00 Blood Pressure 128/81 07/04/19 10:00 O2 Sat by Pulse Oximetry (%) 94 L 07/04/19 09:00 Eyes: Yes: PERRL HENT: Yes: Atraumatic Neck: Yes: Supple Cardiovascular: Yes: Regular Rate and Rhythm, S1, S2 Respiratory: Yes: CTA Bilaterally Gastrointestinal: Yes: Normal Bowel Sounds, Soft. No: Tenderness Edema: No Additional Findings/Remarks: - Review of Systems Constitutional: denies Chills. denies: Fever Cardiovascular: denies Shortness of Breath. denies: Chest Pain, Palpitations Respiratory: denies SOB. denies: Cough, Hemoptysis, Orthopnea, PND Gastrointestinal: denies: Abdominal Pain, Constipation, Diarrhea, Melena, Nausea , Rectal Bleeding, Vomiting Genitourinary: denies: Dysuria, Hematuria Musculoskeletal: denies Joint Pain Neurological: denies: Dizziness, Headache, Seizure, (+) Syncope Labs: CBC, BMP 07/03/19 05:22 07/04/19 06:25 Assessment/Plan 1. Syncope 2. CAD s/p CABG, angina 3. HTN 4. Hypercholesterolemia 5. T2DM 6. Bronchial asthma 7. Acute on chronic diastolic failure, euvolemic/compensated 8. Post MVR (bioprosthesis) PLAN: 1. Continue Lisinopril 20 mg QD and Amlodipine 5 mg QD 2. Continue Atorvastatin 40 mg QHS 3. ASA 81 mg QD 4. Echocardiography reviewed Market Survey Representative: Dr. Slava Tai Discharge planning Josh Pitt MD
--- NOTE | 2019-07-04 11:36 | DS ---
Physical Exam: SUBJECTIVE: Patient seen and examined at the bedside. He stated that he was doing well. Endorsed good appetite. Denied cp, palpitations sob, abd pain, n/v/c /d, headaches, dizziness, lightheadedness, numbness, tingling, confusion, weakness, dysuria, hematuria. OBJECTIVE: Vital Signs Period Temp Pulse Resp BP Sys/Munoz Pulse Ox Last 24 Hr 97.8 F-98.5 F 47-73 17-20 111-145/59-81 94-96 PHYSICAL EXAM GENERAL: The patient is awake, alert, and fully oriented, in no acute distress. [place] speaking. HEAD: Normal with no signs of trauma. EYES: PERRL, extraocular movements intact, conjunctiva clear. ENT: Oropharynx clear without exudates, moist mucous membranes. LUNGS: Breath sounds equal, clear to auscultation bilaterally, no wheezes, no crackles, no accessory muscle use. HEART: Regular rate and rhythm, S1, S2 without murmur, rub. ABDOMEN: Soft, nontender, nondistended, normoactive bowel sounds, no guarding, no rebound, no masses. EXTREMITIES: 2+ pulses, warm, well-perfused, no edema. NEUROLOGICAL: Cranial nerves II through XII grossly intact. 5/5 muscle strength bilaterally upper and lower extremities. PSYCH: Normal mood, normal affect. SKIN: Warm, dry, normal turgor, no rashes or lesions noted. LABS Laboratory Results - last 24 hr 07/03/19 07/03/19 07/03/19 10:41 17:25 21:45 Sodium Potassium Chloride Carbon Dioxide Anion Gap BUN Creatinine Est GFR (CKD-EPI)AfAm Est GFR (CKD-EPI)NonAf POC Glucometer 122 Random Glucose Hemoglobin A1c % Calcium Magnesium Triglycerides Cholesterol Total LDL Cholesterol HDL Cholesterol TSH 2.35 Opiates Screen Negative Methadone Screen Negative Barbiturate Screen Negative Phencyclidine Screen Negative Ur Amphetamines Screen Negative MDMA (Ecstasy) Screen Negative Benzodiazepines Screen Negative Cocaine Screen Negative U Marijuana (THC) Screen Negative 07/03/19 07/04/19 07/04/19 21:45 05:57 06:25 Sodium 139 Potassium 4.1 Chloride 108 H Carbon Dioxide 26 Anion Gap 5 L BUN 18.2 H Creatinine 0.9 Est GFR (CKD-EPI)AfAm 101.36 Est GFR (CKD-EPI)NonAf 87.45 POC Glucometer 105 Random Glucose 89 Hemoglobin A1c % Calcium 9.4 Magnesium 2.4 Triglycerides 70 Cholesterol 119 Total LDL Cholesterol 49 HDL Cholesterol 61 H TSH Opiates Screen Methadone Screen Barbiturate Screen Phencyclidine Screen Ur Amphetamines Screen MDMA (Ecstasy) Screen Benzodiazepines Screen Cocaine Screen U Marijuana (THC) Screen 07/04/19 06:25 Sodium Potassium Chloride Carbon Dioxide Anion Gap BUN Creatinine Est GFR (CKD-EPI)AfAm Est GFR (CKD-EPI)NonAf POC Glucometer Random Glucose Hemoglobin A1c % 6.0 Calcium Magnesium Triglycerides Cholesterol Total LDL Cholesterol HDL Cholesterol TSH Opiates Screen Methadone Screen Barbiturate Screen Phencyclidine Screen Ur Amphetamines Screen MDMA (Ecstasy) Screen Benzodiazepines Screen Cocaine Screen U Marijuana (THC) Screen HOSPITAL COURSE: Gregg Becerra is a 69 year old male with a past medical history of stroke, CABG, HTN, HLD, DM2, asthma, glaucoma who was admitted for syncope workup. Patient had an EKG noting sinus bradycardia without other abnormalities. Had echo performed which showed bioprosthetic mitral valve, left atrium mildly dilated, EF 55-60%, and otherwise normal study. Head CT noted no acute pathology , evidence of old infarcts. Carotid doppler performed noted minimal intimal thickening at the right carotid bifurcation and small plaques at the left common carotid bifurcation/bulb without evidence of hemodynamically significant stenosis bilaterally. Had negative Utox. No acute events on telemetry. Cardiology was consulted and noted that patient is to remain well hydrated, to continue his home medications, and to follow up in the outpatient clinic with his staff midwife. Patient was recommended to follow up with his neurologist for possible EEG. Was advised to be cautious with his tolterodine medication as it may cause symptoms of lightheadedness and to stop taking it if his symptoms resume and to follow up with his PCP. Patient here was noted with A1c of 6.0 and advised for repeat A1c in 3 months to assess for DM. Patient was advised to follow up with his PCP, staff midwife, and neurologist. Patient was in agreement with the plan, and reiterated it. Patient was discharged in stable medical condition. Date of Admission:07/02/19 Date of Discharge: 07/04/19 Minutes to complete discharge: 35 Discharge Summary Problems reviewed: Yes Reason For Visit: SYNCOPE AND COLLAPSE Current Active Problems CAD (coronary artery disease) (Chronic) CVA (cerebral vascular accident) (Chronic) Diabetes (Chronic) HTN (hypertension) (Chronic) Hyperlipidemia (Chronic) Condition: Stable - Instructions Diet, Activity, Other Instructions: You were admitted due to having an episode of fainting. You had an echocardiogram (ultrasound of the heart) which showed that you have prosthetic valve, mildly dilated part of your heart and is otherwise normal. You had a carotid doppler (ultrasound of the arteries of your neck) which showed some thickening of the arteries of the neck without evidence of any obstruction. You had a head CT scan which did not show any new findings but did show chronic changes from an old stroke. You were seen by a staff midwife who recommended that you continue on your home medications, avoid being dehydrated, and to follow up in the outpatient clinic. You had an A1c (blood test for diabetes) which showed that you have pre- diabetes. MEDICATIONS Please continue to take all of your home medications as prescribed. REFERRALS Please follow up with your primary care doctor, Dr. Slava Gaxiola, within 1 week. Please follow up with your staff midwife, Dr. Slava Tai, within 1 week. Please follow up with your neurologist, Dr. Alex Gonzales, within 1 week. You may need to have an EEG (electrical test of the brain) to make sure that you did not have a seizure. SPECIAL INSTRUCTIONS Please have an A1c bloodtest in 3 months. Take all of your home medications as prescribed to you. Avoid eating food high in sugar or high in fat. Drink plenty of water to avoid being dehydrated and causing symptoms of dizziness or lightheadedness. If you start to have dizziness or lightheadedness after taking tolterodine, then stop taking the medication and see your doctor. If you have any symptoms of chest pain, shortness of breath, lightheadedness, fainting, shaking, increased confusion, falls, hitting your head, or any other general feelings of unwellness, please call 911 or go your nearest emergency room. Referrals: Slava Tai [Non Staff, Medical] - 1 Week Slava Gaxiola [Non Staff, Medical] - 1 Week Alex Gonzales MD [Staff Physician] - 1 Week Disposition: HOME - Home Medications Comprehensive Discharge Medication List: Ambulatory Orders Amlodipine Besylate [Norvasc -] 5 mg PO DAILY 03/12/12 Aspirin [ASA -] 81 mg PO DAILY 07/03/19 Atorvastatin Ca [Lipitor] 40 mg PO DAILY 07/03/19 Ergocalciferol (Vitamin D2) [Vitamin D2] 50,000 unit PO WEEKLY 07/03/19 Latanoprost 0.005% Eye Drops [Xalatan 0.005% Eye Drops -] 1 drop OU DAILY Lisinopril 20 mg PO DAILY 07/03/19 Tolterodine Tartrate [Tolterodine Tartrate ER] 4 mg PO DAILY 07/03/19 Problem List - Problems (1) CAD (coronary artery disease) Code(s): I25.10 - ATHSCL HEART DISEASE OF [place] CORONARY ARTERY W/O ANG PCTRS (2) CVA (cerebral vascular accident) Code(s): I63.9 - CEREBRAL INFARCTION, UNSPECIFIED (3) Diabetes Code(s): E11.9 - TYPE 2 DIABETES MELLITUS WITHOUT COMPLICATIONS (4) HTN (hypertension) Code(s): I10 - ESSENTIAL (PRIMARY) HYPERTENSION (5) Hyperlipidemia Code(s): E78.5 - HYPERLIPIDEMIA, UNSPECIFIED (6) Syncope Code(s): R55 - SYNCOPE AND COLLAPSE This patient is new to me today: Yes Date on this admission: 07/04/19 Emergency Visit: Yes ED Registration Date: 07/02/19 Care time: The patient presented to the Emergency Department on the above date and was hospitalized for further evaluation of their emergent condition. Critical Care patient: No - Discharge Referral Referred to [facility] No
--- NOTE | 2019-07-04 11:52 | PN ---
Teaching Attending Note Name of Resident: Alberto Douglas ATTENDING PHYSICIAN STATEMENT I saw and evaluated the patient. I reviewed the resident's note and discussed the case with the resident. I agree with the resident's findings and plan as documented. SUBJECTIVE: Feeling some residual lightheadedness/dizziness, worse on standing/ walking. OBJECTIVE: Afebrile, Hemodynamically Stable. Last Vital Signs Temp Pulse Resp BP Pulse Ox 98.2 F 55 L 18 128/81 94 L 07/04/19 10:00 07/04/19 10:00 07/04/19 10:07/04/19 10:07/04/19 09:00 Heart - S1, S2, RRR Lungs - clear to auscultation Abdomen - Soft, non-tender. Bowel Sounds normal. Extremities - no edema, no calf tenderness. Neuro -AAO x 3. Tone/Power normal all extremities. Laboratory Results - last 24 hr 07/03/19 07/03/19 07/03/19 17:25 21:45 21:45 Sodium Potassium Chloride Carbon Dioxide Anion Gap BUN Creatinine Est GFR (CKD-EPI)AfAm Est GFR (CKD-EPI)NonAf POC Glucometer 122 Random Glucose Hemoglobin A1c % Calcium Magnesium Triglycerides 70 Cholesterol 119 Total LDL Cholesterol 49 HDL Cholesterol 61 H TSH 2.35 07/04/19 07/04/19 07/04/19 05:57 06:25 06:25 Sodium 139 Potassium 4.1 Chloride 108 H Carbon Dioxide 26 Anion Gap 5 L BUN 18.2 H Creatinine 0.9 Est GFR (CKD-EPI)AfAm 101.36 Est GFR (CKD-EPI)NonAf 87.45 POC Glucometer 105 Random Glucose 89 Hemoglobin A1c % 6.0 Calcium 9.4 Magnesium 2.4 Triglycerides Cholesterol Total LDL Cholesterol HDL Cholesterol TSH Current Medications Generic Name Dose Route Start Last Admin Trade Name Freq PRN Reason Stop Dose Admin Amlodipine Besylate 5 mg 07/03/19 14:30 07/04/19 09:18 Norvasc - PO 5 mg DAILY ALEX Administration Aspirin 81 mg 07/04/19 10:00 07/04/19 09:18 Asa - PO 81 mg DAILY ALEX Administration Atorvastatin Calcium 40 mg 07/03/19 22:00 07/03/19 21:16 Lipitor - PO 40 mg HS ALEX Administration Heparin Sodium (Porcine) 5,000 unit 07/03/19 06:00 07/04/19 06:03 Heparin - SQ 5,000 unit TID ALEX Administration Insulin Aspart 1 vial 07/03/19 07:00 07/04/19 06:03 Novolog Vial Sliding Scale - SQ Not Given TIDAC [facility] Protocol Lisinopril 20 mg 07/03/19 14:45 07/04/19 09:18 Prinivil PO 20 mg DAILY ALEX Administration Tolterodine Tartrate 4 mg 07/04/19 10:00 07/04/19 09:18 Detrol La - PO 4 mg DAILY ALEX Administration Discharge Medications Medication Instructions Recorded Amlodipine Besylate [Norvasc -] 5 mg PO DAILY 03/12/12 Aspirin [ASA -] 81 mg PO DAILY 07/03/19 Atorvastatin Ca [Lipitor] 40 mg PO DAILY 07/03/19 Ergocalciferol (Vitamin D2) 50,000 unit PO WEEKLY 07/03/19 [Vitamin D2] Latanoprost 0.005% Eye Drops 1 drop OU DAILY 07/03/19 [Xalatan 0.005% Eye Drops -] Lisinopril 20 mg PO DAILY 07/03/19 Tolterodine Tartrate [Tolterodine 4 mg PO DAILY 07/03/19 Tartrate ER] ASSESSMENT AND PLAN: 69 year old male with PMH of CVA, CAD s/p CABG, HTN, HLD, DM 2, Asthma, Glaucoma , presents s/p syncopal episode. Reports preceeding lightheadedness. No CP/ palpitations. Reports LOC for several minutes. HI uncertain. CT Head: no evidence of acute pathology. Interval development of chronic L temporal/occipital cortical infarct. 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 Paranasal sinus disease. 1. Syncope, etiology unclear - vasovagal likely Echo - normal LV function, bioprosthetic MV. Carotid Duplex - no hemodynamically significant stenosis. Orthostatic Vitals negative Telemonitoring - no events Cardiology consulted - does not appear to be symptomatic bradycardia. EEG and Neuro eval as out-patient. Cardio follow up as out-patient with patient's Classroom Assistant Dr. Gonzalez at [facility] for possible out-patient stress as per Cardio. 2. Hx of CVA, multiple chronic infarcts on CT Head. continue Aspirin, Statin. 3. DM 2 - diet controlled. 4. HTN - Continue home meds once med - Norvasc, Lisinopril. 5. HLD - continue Statin. 6. CAD s/p CABG - no evidence of cardiac etiology. ECG - no acute changes, TropI neg. No Telemonitoring events. Medically optimized for discharge with Cardio and Neuro referrals.
[2019-07-04 12:41] VITALS: BP 132/77; PULSE 66
== END 2019-07-04 13:46 | disposition home or self-care (01) | DRG 312 ==
LOC: JER 20:32 → JERBED 22:03 → J4W 07-03 10:58
PROVIDERS: ADMIT Internal Medicine
PROC: 4A00X4Z Measurement of Central Nervous Electrical Activity, External Approach (ICD-10-PCS; principal; 2019-07-03)
DX: R55 Syncope and collapse (principal); I50.32 Chronic diastolic (congestive) heart failure; I69.351 Hemiplegia and hemiparesis following cerebral infarction affecting right dominant side; E78.5 Hyperlipidemia, unspecified; E11.9 Type 2 diabetes mellitus without complications; J45.909 Unspecified asthma, uncomplicated; H40.9 Unspecified glaucoma; Z95.1 Presence of aortocoronary bypass graft; I11.0 Hypertensive heart disease with heart failure; Z95.2 Presence of prosthetic heart valve
CPT/HCPCS: 36415; 70450-TC; 71045-TC-FY; 80048; 80053; 80061; 80307; 81003; 82550; 82553; 82962; 83036; 83721; 83735; 84443; 84484; 85025; 87086; 93005; 93010; 93306-TC; 93880-TC; 94010; 95816; 97116-GP; 97161-GP; 99285-25; J1644